=== PATIENT | female | born 1960 | race Caucasian/White ===

== ENCOUNTER 2022-12-24 04:46 | Emergency (ER) | payer BC ==
[2022-12-24] MEDS ORDERED: Metoprolol Tartrate 50 MG TAB ONE ×2 (05:11→06:31)
[2022-12-24] MEDS ORDERED: Sodium Chloride 0.9% 1,000 ML ONE (05:11)
[2022-12-24 05:26] LABS: #Basophils 0.1 thou/uL (0.0-0.2); #Eosinphils 0.3 thou/uL (0.0-0.7); #Lymphocytes 1.7 thou/uL (1.20-3.40); #Monocytes 0.9 thou/uL (0.11-0.59); #Neutrophils 3.5 thou/uL (1.40-6.50); %Basophils 2.1 % (0.0-1.0); %Eosinophils 4.3 % (0.0-10.0); %Lymphocytes 25.9 % (21.0-51.0); %Monocytes 13.6 % (0.0-10.0); Hemoglobin 13.2 g/dL (12.0-16.0); Mean Corpuscular HGB CONC 33.3 g/dL (32.0-36.0); Mean Corpuscular Hemoglobin 28.8 pg (27.0-31.0); Mean Corpuscular Volume 86.5 fl (78.0-98.0); Platelet Count 257 10x3/uL (130-400); RBC Distribution Width 11.5 % (11.5-14.5); Red Blood Cell (RBC) Count 4.59 mill/uL (4.20-5.40); White Blood Cell (WBC) Count 6.5 10x3/uL (4.8-10.8)
[2022-12-24 05:32] LABS: Prothrombin Time 13.5 sec (12.0-14.7)
[2022-12-24 05:33] LABS: PTT 27.8 sec (22.9-36.1)
[2022-12-24 05:35] LABS: D-Dimer Test 0.38 *mcg/mL (0.27-0.43)
[2022-12-24 05:43] LABS: ALT (SGPT) 16 U/L (8-55); AST (SGOT) 23 U/L (5-34); Albumin 4.2 g/dL (3.4-4.8); Alkaline Phosphatase 65 U/L (40-110); Anion Gap 15 mmol/L (10-20); BUN (Urea Nitrogen) 13 mg/dL (9.8-20.1); Bilirubin, Total 0.3 mg/dL (0.2-1.2); Calc. Creatinine Clearance 0 mL/min (70-130); Calcium 8.8 mg/dL (7.8-10.44); Carbon Dioxide 21 mmol/L (23-31); Chloride 107 mmol/L (98-107); Estimated GFR 87; Glucose 113 mg/dL (80-115); Magnesium 2.1 mg/dL (1.6-2.6); Protein, Total 7.2 g/dL (5.8-8.1); Sodium 139 mmol/L (136-145)
== END 2022-12-24 09:40 | disposition left against medical advice (07) ==
LOC: MADERS 04:46
DX: I47.1 Supraventricular tachycardia (principal); R77.8 Other specified abnormalities of plasma proteins
CPT/HCPCS: 71045; 80053; 82553; 83735; 84484; 85025; 85379; 85610; 85730; 93005; 96360; 96361; J7050